=== PATIENT | male | born 1970 | race American Indian/Alaskan Native ===

== ENCOUNTER 2017-09-14 10:03 | Emergency (ER) | payer OTHER ==
[2017-09-14 10:03] VITALS: BMI 36.9
[2017-09-14 10:32] VITALS: RESP 20
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
[2017-09-14 11:29] VITALS: BP 148/91; PULSE 76; TEMP 98.5
[2017-09-14 11:57] VITALS: O2SAT 98
== END 2017-09-14 11:29 | disposition home or self-care (01) ==
LOC: C.ER 10:03
DX: H66.91 Otitis media, unspecified, right ear (principal); H44.001 Unspecified purulent endophthalmitis, right eye